=== PATIENT | female | born 1980 | race Caucasian/White ===

== ENCOUNTER 2016-05-18 09:17 | Emergency (ER) | payer OTHER ==
[~2016-05-18] VITALS: Ht 160 cm; Wt 67.9 kg
[~2016-05-18 09:17] MED LIST: ALBUAER19 INH; BUPR-79 PO; FAMO20TA11 PO; PRENTAB26 PO
[2016-05-18 09:22] VITALS: TEMP 37.3; Ht 160 cm; Wt 67.9 kg
--- NOTE | 2016-05-18 09:55 | EMERGENCY ROOM VISIT NOTE ---
History Report prepared by Bry: Adan Zavala Under the Supervision of: Dr. Deyvi Mason M.D. First contact with patient: 09:33 Chief Complaint: ABDOMINAL PAIN Stated Complaint: DIZZY, ELEVATED HEART RATE Nursing Triage Summary: pt reports "'I have been sick with stomache stuff and taking prilosec and this helped , then last week started with stomache pain and nausea and diarrhea" taking pepcid and this seems to help , has taken nothing today History of Present Illness The patient is a 35 year old female who presents to the Emergency Room with complaints of left upper quadrant abdominal pain starting about 3 days ago. Her abdominal pain initially started a few weeks ago. She had a gallbladder ultrasound at her PCP's office a few weeks ago with negative findings. She was placed on Prilosec with relief. About 3 days ago, she started having abdominal pain again. She stopped taking Prilosec and started taking Pepcid without relief. She also started having nausea, diarrhea and dizziness. The dizziness resolved after a day. Yesterday, she also felt gas in her abdomen but has been unable to pass it. This morning, she started having heart palpitations and intermittent dizziness. She reports some mild tingling. She denies any sudden changes in position. The patient denies numbness, chest pain, shortness of breath, vomiting, constipation, urinary symptoms, or any other complaints. She has been having normal menstrual periods. Source of History: patient Onset: about 3 days ago Position: abdomen (LUQ) Timing: intermittent Modifying Factors (Relieving): other (Prilosec with relief; Pepcid without relief) Associated Symptoms: + diarrhea, + nausea, No SOB, No chest pain, No numbness, No urinary symptoms, No vomiting Review of Systems All systems have been listed, reviewed, and are negative other than those previously mentioned. Please see Additional Medical History Sheet. Past Medical & Surgical Medical Problems: (1) Asthma (2) Bronchitis (3) Vaginal delivery Family History Cancer Social History Smoking Status: Former Smoker Alcohol Use: none Marital Status: Occupation Status: unemployed Current/Historical Medications Scheduled Famotidine (Pepcid), 20 MG PO DAILY Allergies Coded Allergies: Sulfamethoxazole w/Trimethoprim (Unverified Allergy, Unknown, RASH, ) Physical Exam Vital Signs Date Time Temp Pulse Resp B/P Pulse Ox O2 Delivery O2 Flow Rate FiO2 2/13/17 12:06 64 16 100/54 97 Room Air 05/18/16 11:09 97/58 05/18/16 09:22 37.3 93 18 102/74 97 Room Air Physical Exam GENERAL: Patient is anxious and occasionally tearful. SKIN: No erythema, pallor, cyanosis or rash HEENT: Normal head, pupils equal, reactive to light and accommodation. Ears normal. Oral cavity and posterior pharynx appear normal. Neck: Without adenopathy, no neck vein distention. LUNGS: Clear to auscultation. No wheezes, no rales, no rhonchi. HEART: No murmurs. No gallops. No rubs ABDOMEN: Patient has vague left upper quadrant tenderness. No masses, no rebound , no hepatomegaly or splenomegaly. BACK: Nontender, no signs of trauma. EXTREMITIES: No signs of trauma. No pedal or pretibial edema. No calf or thigh tenderness. NEUROLOGIC: Cranial nerves II-XII within normal limits. No gross motor sensory function deficits. PSYCHIATRIC: The patient is awake alert but anxious and tearful. Medical Decision & Procedures Laboratory Results 05/18/16 10:00 Red Blood Count 4.53, Mean Corpuscular Volume 89.0, Mean Corpuscular Hemoglobin 31.8, Mean Corpuscular Hemoglobin Concent 35.7, Mean Platelet Volume 10.7, Neutrophils (%) (Auto) 74.2, Lymphocytes (%) (Auto) 18.6, Monocytes (%) (Auto) 6.5, Eosinophils (%) (Auto) 0.3, Basophils (%) (Auto) 0.2, Neutrophils # (Auto) 6.65, Lymphocytes # (Auto) 1.67, Monocytes # (Auto) 0.58, Eosinophils # (Auto) 0.03, Basophils # (Auto) 0.02 05/18/16 10:00 Test 05/18/16 09:50 05/18/16 10:00 Urine Color YELLOW Urine Appearance CLEAR (CLEAR) Urine pH 8.0 (4.5-7.5) Urine Specific [place] 1.005 (1.000-1.030) Urine Protein NEG (NEG) Urine Glucose (UA) NEG (NEG) Urine Ketones NEG (NEG) Urine Occult Blood NEG (NEG) Urine Nitrite NEG (NEG) Urine Bilirubin NEG (NEG) Urine Urobilinogen NEG (NEG) Urine Leukocyte Esterase NEG (NEG) Urine Test NEG (NEG) White Blood Count 8.97 K/uL (4.8-10.8) Red Blood Count 4.53 M/uL (4.2-5.4) Hemoglobin 14.4 g/dL (12.0-16.0) Hematocrit 40.3 % (37-47) Mean Corpuscular Volume 89.0 fL (80-100) Mean Corpuscular Hemoglobin 31.8 pg (25-34) Mean Corpuscular Hemoglobin Concent 35.7 g/dl (32-36) Platelet Count 217 K/uL (130-400) Mean Platelet Volume 10.7 fL (7.4-10.4) Neutrophils (%) (Auto) 74.2 % Lymphocytes (%) (Auto) 18.6 % Monocytes (%) (Auto) 6.5 % Eosinophils (%) (Auto) 0.3 % Basophils (%) (Auto) 0.2 % Neutrophils # (Auto) 6.65 K/uL (1.4-6.5) Lymphocytes # (Auto) 1.67 K/uL (1.2-3.4) Monocytes # (Auto) 0.58 K/uL (0.11-0.59) Eosinophils # (Auto) 0.03 K/uL (0-0.5) Basophils # (Auto) 0.02 K/uL (0-0.2) RDW Standard Deviation 41.7 fL (36.4-46.3) RDW Coefficient of Variation 12.9 % (11.5-14.5) Immature Granulocyte % (Auto) 0.2 % Immature Granulocyte # (Auto) 0.02 K/uL (0.00-0.02) Anion Gap 10.0 mmol/L (3-11) Est Creatinine Clear Calc Drug Dose 77.3 ml/min Estimated GFR () 91.6 Estimated GFR (Non- 79.1 BUN/Creatinine Ratio 8.7 (10-20) Calcium Level 9.5 mg/dl (8.5-10.1) Total Bilirubin 0.3 mg/dl (0.2-1) Aspartate Amino Transf (AST/SGOT) 14 U/L (15-37) Alanine Aminotransferase (ALT/SGPT) 15 U/L (12-78) Alkaline Phosphatase 62 U/L (45-117) Total Protein 7.4 gm/dl (6.4-8.2) Albumin 4.1 gm/dl (3.4-5.0) Globulin 3.3 gm/dl (2.5-4.0) Albumin/Globulin Ratio 1.2 (0.9-2) Lipase 147 U/L (73-393) Laboratory results as stated above per my review. ED Course 0933: Past medical records reviewed. The patient was evaluated in room B08. A complete history and physical examination was performed. 1148: Upon reevaluation, the patient is tearful but otherwise appeared to have improvement of her symptoms. I discussed today's findings with her. She verbalized agreement of the treatment plan. She was discharged home. Medical Decision Differential diagnosis includes but is not limited to hypertensive, anxiety, gastroenteritis, pancreatitis, IBS. 35-year-old female with abdominal pain and anxiety. Patient is tearful. Multiple labs and urinalysis were obtained. Please see above. The patient has no evidence of a can acute bacterial infection. I believe she may have a viral infection with significant overlaying anxiety. I've reassured the patient and encouraged her to continue taking Pepcid and drinking extra fluids. The patient is to follow-up with her family physician in 2 weeks if symptoms have not completely resolved. Impression Primary Impression: Anxiety Additional Impression: Viral infection Scribe Attestation The scribe's documentation has been prepared under my direction and personally reviewed by me in its entirety. I confirm that the note above accurately reflects all work, treatment, procedures, and medical decision making performed by me. Departure Information Dispostion Home / Self-Care Referrals Nalini Talley M.D. (PCP) Forms Call Back Authorization, HOME CARE DOCUMENTATION FORM, IMPORTANT VISIT INFORMATION Patient Instructions My [facility] [place] [employer] Additional Instructions Drug extra fluids. Continue taking Pepcid along with any other prescribed medications. Follow-up with your family physician in 2 weeks if symptoms have not completely resolved. Problem Qualifiers
[2016-05-18 10:18] LABS: BASO % 0.2 %; BASO ABS # 0.02 K/uL (0-0.2); COMPLETE YES; EOS % 0.3 %; HEMATOCRIT 40.3 % (37-47); IG% 0.2 %; LYMPH % 18.6 %; LYMPH ABS # 1.67 K/uL (1.2-3.4); MEAN CORPUSCULAR HEMOGLOBIN 31.8 pg (25-34); MEAN CORPUSCULAR HGB CONC 35.7 g/dl (32-36); MEAN PLATELET VOLUME 10.7 fL (7.4-10.4); MONO % 6.5 %; NEUT % 74.2 %; PLATELET COUNT 217 K/uL (130-400); RED BLOOD COUNT 4.53 M/uL (4.2-5.4); WHITE BLOOD COUNT 8.97 K/uL (4.8-10.8)
[2016-05-18 10:44] LABS: BUN/CREATININE RATIO 8.7 (10-20); CALCIUM 9.5 mg/dl (8.5-10.1); CREATININE 0.93 mg/dl (0.60-1.20); POTASSIUM 3.5 mmol/L (3.5-5.1)
[2016-05-18 10:46] LABS: ALB/GLOB RATIO 1.2 (0.9-2)
[2016-05-18 11:21] LABS: URINE APPEARANCE CLEAR (CLEAR); URINE BILIRUBIN NEG (NEG); URINE COLOR YELLOW; URINE NITRITE NEG (NEG); URINE SPECIFIC GRAVITY 1.005 (1.000-1.030); UROBILINOGEN NEG (NEG); ZZUR CULT IF INDIC CLEAN CATCH NO
[2016-05-18 11:25] LABS: MANUAL MICROSCOPIC REQUIRED? NO; REVIEW REQ? NO
[2016-05-18 12:06] VITALS: BP 100/54; PULSE 64; O2SAT 97
== END 2016-05-18 12:09 | disposition home or self-care (01) ==
LOC: C.EDB 09:18
DX: F41.9 Anxiety disorder, unspecified (principal); B34.9 Viral infection, unspecified; J45.909 Unspecified asthma, uncomplicated; Z87.891 Personal history of nicotine dependence; Z79.899 Other long term (current) drug therapy; Z88.2 Allergy status to sulfonamides

== ENCOUNTER 2016-05-27 08:52 | Emergency (ER) | payer OTHER ==
[~2016-05-27] VITALS: Ht 160 cm; Wt 66.4 kg
[~2016-05-27 08:52] MED LIST changes: -ALBUAER19 INH; -BUPR-79 PO; -PRENTAB26 PO
[2016-05-27 08:54] VITALS: TEMP 37.1; Ht 160 cm; Wt 66.4 kg
[2016-05-27] MEDS ORDERED: NYSS/ PO (09:11)
[2016-05-27] MEDS ORDERED: LORAZEPAM 2 MG/ML 1 ML VIAL IV STA (09:23)
[2016-05-27] MEDS ORDERED: SODIUM CHLORIDE 0.9% 500ML 500 ML IV STA (09:23)
[2016-05-27] MEDS ORDERED: GI COCKTAIL PO STA (09:23)
[2016-05-27] MEDS ORDERED: FAMOTIDINE 20 MG TAB PO ONE (09:30)
[2016-05-27] MEDS ORDERED: SUCRALFATE 1 GM TAB PO ONE (09:30)
--- NOTE | 2016-05-27 09:42 | EMERGENCY ROOM VISIT NOTE ---
History Report prepared by Bry: Eduardo Rutledge Under the Supervision of: Dr. Mannie Nuñez M.D. First contact with patient: 09:05 Chief Complaint: ANXIETY Stated Complaint: SOB, TINGLING IN RT SHOULDER, CHILLS/NO FEVER History of Present Illness The patient is a 35 year old female who presents to the Emergency Room with complaints of recurrent anxiety for the past several weeks. The patient has been experiencing episodes of tachycardia, tingling in her right shoulder, and chest heaviness. The patient's anxiety started when she experienced back-to- back sinus infection followed by gastritis. She was started on Prilosec for ongoing abdominal pain and nausea by Dr. Marcelo. The patient did have some relief of the abdominal issues on Prilosec but notes that she started to experience the tachycardic episodes. She stopped taking Prilosec until she saw Dr. Paige 7 days ago. She started taking Prilosec again as well as BuSpar for anxiety and Nystat for thrush. The patient started to experience her anxiety symptoms again after continuing Prilosec. The patient once again discontinued Prilosec as well as BuSpar a few days ago. The patient has an endoscopy scheduled for six days from now. She has five children at home and is not having any problems at home. She denies suicidal or homicidal ideations. The patient denies personal or family history of heart disease. She is not diabetic. She is an occasional smoker. Source of History: patient Onset: several weeks Position: other (psyche) Quality: other (anxiety) Timing: other (recurrent) Modifying Factors (Worsening): other (Prilosec) Associated Symptoms: + numbness Note: Positive for tachycardia. Review of Systems See HPI for pertinent positives & negatives. A total of 10 systems reviewed and were otherwise negative. Past Medical & Surgical Medical Problems: (1) Asthma (2) Bronchitis (3) Vaginal delivery Family History Cancer Social History Smoking Status: Former Smoker Alcohol Use: none Marital Status: Occupation Status: unemployed Current/Historical Medications Scheduled Nystatin (Nystatin Suspension), 5 ML PO 5XD Scheduled PRN Lorazepam (Ativan), 1 MG PO Q6H PRN for Anxiety/Agitation Allergies Coded Allergies: Sulfamethoxazole w/Trimethoprim (Unverified Allergy, Unknown, RASH, ) Physical Exam Vital Signs Date Time Temp Pulse Resp B/P Pulse Ox O2 Delivery O2 Flow Rate FiO2 05/27/16 11:10 63 16 97/60 100 Room Air 05/27/16 10:31 65 18 102/61 99 Room Air 05/27/16 08:54 37.1 92 18 99/65 97 Room Air Physical Exam GENERAL: Patient is a healthy-appearing well-nourished. Crying on exam. HEAD: Normocephalic atraumatic EYES: Ocular movements intact pupils equal and react to light OROPHARYNX mucous membranes are moist no exudates present no erythema or edema present NECK: Supple no nuchal rigidity CHEST: Good equal expansion LUNGS: Clear and equal to auscultation CARDIAC: Normal S1 and S2 ABDOMEN: Soft nontender no guarding BACK: No CVA tenderness EXTREMITIES: No pain upon palpation normal muscle strength in all groups no clubbing cyanosis or edema NEURO: Patient is following commands is answering questions appropriately. Alert and oriented x3 Cranial Nerves 2-12 grossly intact PSYCH: Crying on exam. Denies suicidal or homicidal ideations. Medical Decision & Procedures ER Provider Diagnostic Interpretation: X-ray results as stated below per interpretation by me and the radiologist: CHEST ONE VIEW PORTABLE CLINICAL HISTORY: Atypical chest pain and shortness of breath COMPARISON STUDY: No previous studies for comparison. FINDINGS: The cardiac and mediastinal contours are normal. There is no evidence of focal pulmonary consolidation. There is no evidence of failure. No pleural effusions are visualized.[ IMPRESSION: No active disease in the chest. Electronically signed by: Javier Segundo M.D. 05/27/2016 9:55 AM Dictated Date/Time: 05/27/2016 9:55 AM Laboratory Results 05/27/16 09:44 Red Blood Count 4.55, Mean Corpuscular Volume 90.1, Mean Corpuscular Hemoglobin 32.1, Mean Corpuscular Hemoglobin Concent 35.6, Mean Platelet Volume 11.2, Neutrophils (%) (Auto) 66.4, Lymphocytes (%) (Auto) 25.7, Monocytes (%) (Auto) 7.2, Eosinophils (%) (Auto) 0.5, Basophils (%) (Auto) 0.1, Neutrophils # (Auto) 4.95, Lymphocytes # (Auto) 1.92, Monocytes # (Auto) 0.54, Eosinophils # (Auto) 0.04, Basophils # (Auto) 0.01 05/27/16 09:44 Test 05/27/16 09:44 White Blood Count 7.47 K/uL (4.8-10.8) Red Blood Count 4.55 M/uL (4.2-5.4) Hemoglobin 14.6 g/dL (12.0-16.0) Hematocrit 41.0 % (37-47) Mean Corpuscular Volume 90.1 fL (80-100) Mean Corpuscular Hemoglobin 32.1 pg (25-34) Mean Corpuscular Hemoglobin Concent 35.6 g/dl (32-36) Platelet Count 206 K/uL (130-400) Mean Platelet Volume 11.2 fL (7.4-10.4) Neutrophils (%) (Auto) 66.4 % Lymphocytes (%) (Auto) 25.7 % Monocytes (%) (Auto) 7.2 % Eosinophils (%) (Auto) 0.5 % Basophils (%) (Auto) 0.1 % Neutrophils # (Auto) 4.95 K/uL (1.4-6.5) Lymphocytes # (Auto) 1.92 K/uL (1.2-3.4) Monocytes # (Auto) 0.54 K/uL (0.11-0.59) Eosinophils # (Auto) 0.04 K/uL (0-0.5) Basophils # (Auto) 0.01 K/uL (0-0.2) RDW Standard Deviation 42.7 fL (36.4-46.3) RDW Coefficient of Variation 13.0 % (11.5-14.5) Immature Granulocyte % (Auto) 0.1 % Immature Granulocyte # (Auto) 0.01 K/uL (0.00-0.02) Anion Gap 10.0 mmol/L (3-11) Est Creatinine Clear Calc Drug Dose 80.0 ml/min Estimated GFR () 96.6 Estimated GFR (Non- 83.4 BUN/Creatinine Ratio 6.1 (10-20) Calcium Level 9.4 mg/dl (8.5-10.1) Total Bilirubin 0.6 mg/dl (0.2-1) Direct Bilirubin 0.1 mg/dl (0-0.2) Aspartate Amino Transf (AST/SGOT) 25 U/L (15-37) Alanine Aminotransferase (ALT/SGPT) 58 U/L (12-78) Alkaline Phosphatase 61 U/L (45-117) Total Creatine Kinase 113 U/L (26-192) Creatine Kinase MB 0.7 ng/ml (0.5-3.6) Creatine Kinase MB Ratio 0.6 (0-3.0) Troponin I < 0.015 ng/ml (0-0.045) Total Protein 7.4 gm/dl (6.4-8.2) Albumin 4.1 gm/dl (3.4-5.0) Lipase 130 U/L (73-393) Labs reviewed by ED physician. Medications Administered Medications (Trade) Dose Ordered Sig/Chiquis Route Start Time Stop Time Status Last Admin Dose Admin Lorazepam 1 mg 1 mg NOW STAT IV 05/27/16 09:23 05/27/16 09:24 DC 05/27/16 10:27 1 MG Sodium Chloride (Nss 500ml) 500 ml @ 999 mls/hr Q31M STAT IV 05/27/16 09:23 05/27/16 09:53 DC 05/27/16 09:23 999 MLS/HR Al Hydroxide/Mg Hydroxide (Maalox Susp) 30 ml STK-MED ONCE .ROUTE 05/27/16 10:18 05/27/16 10:20 DC 05/27/16 10:26 30 ML Lidocaine HCl (Viscous Lidocaine 2% Soln) 20 ml STK-MED ONCE .ROUTE 05/27/16 10:19 05/27/16 10:21 DC 05/27/16 10:26 20 ML ECG Indication: chest pain Rate (beats per minute): 75 Rhythm: normal sinus Findings: no acute ischemic change, no ectopy, other (normal EKG) ED Course 14: Past medical records reviewed. The patient was evaluated in room A4b. A complete history and physical examination was performed. 0923: GI Cocktail 24 ml PO, NSS 500 ml @ 999 mls/hr, Ativan 1 mg IV. 0930: Carafate 1 gm PO, Pepcid 20 mg PO. 1105: Reassessed the patient. Discussed the treatment plan. She verbalized understanding and agreement. The patient is ready for discharge. Medical Decision Differential diagnosis: Etiologies such as mood disorder, infection, hypoglycemia, electrolyte abnormalities, cardiac sources, intracerebral event, toxicologic, neurologic, as well as others were entertained. This is a 35-year-old female who presents emergency department acutely anxious. The patient is hyperventilating and crying on examination. The patient believes she is having a reaction to her Prilosec which she had recently been started on by her primary care physician. In addition the patient also felt she was having reactions to her BuSpar. She stopped taking this 2 days ago. The patient was given 1 mg of Ativan in the emergency department. Repeat examination revealed much improvement the patient's symptoms. She has normal CK -MB troponin as well as a normal EKG. I believe she as well as to be discharged home for follow-up with her primary care physician. I advised the patient that she would only be given a limited supply of Ativan. Patient was in agreement with the treatment plan. Impression Primary Impression: Acute anxiety Scribe Attestation The scribe's documentation has been prepared under my direction and personally reviewed by me in its entirety. I confirm that the note above accurately reflects all work, treatment, procedures, and medical decision making performed by me. Departure Information Dispostion Home / Self-Care Prescriptions Lorazepam (ATIVAN) 1 Mg Tab 1 MG PO Q6H Y for Anxiety/Agitation, #6 TAB Prov: Mannie Nuñez MD 05/27/16 Referrals Nalini Talley M.D. (PCP) Forms HOME CARE DOCUMENTATION FORM, IMPORTANT VISIT INFORMATION, School Instructions, Work Instructions Patient Instructions Anxiety Body Response, My [facility] Additional Instructions Follow up with DR Talley's office You have been examined and treated today on an emergency basis only. This is not a substitute for, or an effort to provide, complete comprehensive medical care. It is impossible to recognize and treat all injuries or illnesses in a single emergency department visit. It is therefore important that you follow up closely with Dr Talley. Call as soon as possible for an appointment. Thank you for your time and consideration. I look forward to speaking with you again soon. Please don't hesitate to call us if you have any questions.
--- NOTE | 2016-05-27 09:56 | DIAGNOSTIC IMAGING REPORT ---
CHEST ONE VIEW PORTABLE CLINICAL HISTORY: Atypical chest pain and shortness of breath COMPARISON STUDY: No previous studies for comparison. FINDINGS: The cardiac and mediastinal contours are normal. There is no evidence of focal pulmonary consolidation. There is no evidence of failure. No pleural effusions are visualized.[ IMPRESSION: No active disease in the chest. Electronically signed by: Javier Segundo M.D. 05/27/2016 9:55 AM Dictated Date/Time: 05/27/2016 9:55 AM
[2016-05-27] MEDS ORDERED: ALUMINUM/MAGNESIUM SUSP 30 ML UDC ONE (10:18)
[2016-05-27] MEDS ORDERED: LIDOCAINE HCL 2% VISC SOLN 20 ML UDC ONE (10:19)
[2016-05-27 10:25] LABS: BASO % 0.1 %; BASO ABS # 0.01 K/uL (0-0.2); COMPLETE YES; EOS % 0.5 %; IG% 0.1 %; LYMPH % 25.7 %; LYMPH ABS # 1.92 K/uL (1.2-3.4); MEAN CELL VOLUME 90.1 fL (80-100); MEAN CORPUSCULAR HEMOGLOBIN 32.1 pg (25-34); MEAN CORPUSCULAR HGB CONC 35.6 g/dl (32-36); MEAN PLATELET VOLUME 11.2 fL (7.4-10.4); MONO % 7.2 %; NEUT % 66.4 %; PLATELET COUNT 206 K/uL (130-400); RED BLOOD COUNT 4.55 M/uL (4.2-5.4); WHITE BLOOD COUNT 7.47 K/uL (4.8-10.8)
[2016-05-27 10:32] LABS: ALT/SGPT 58 U/L (12-78); BLOOD UREA NITROGEN 5 mg/dl (7-18); BUN/CREATININE RATIO 6.1 (10-20); CALCIUM 9.4 mg/dl (8.5-10.1); CARBON DIOXIDE 23 mmol/L (21-32); CHLORIDE 110 mmol/L (98-107); CREATININE 0.89 mg/dl (0.60-1.20); GLUCOSE 89 mg/dl (70-99); POTASSIUM 3.9 mmol/L (3.5-5.1); SODIUM 143 mmol/L (136-145)
[2016-05-27 10:37] LABS: ALKALINE PHOSPHATASE 61 U/L (45-117); AST/SGOT 25 U/L (15-37); CKMB/CK RATIO 0.6 (0-3.0)
[2016-05-27] MEDS ORDERED: ATV/1 PO (11:02)
[2016-05-27 11:10] VITALS: BP 97/60; PULSE 63; O2SAT 100
== END 2016-05-27 11:36 | disposition home or self-care (01) ==
LOC: C.EDB 08:53 → C.EDA 11:36
DX: F41.9 Anxiety disorder, unspecified (principal); J45.909 Unspecified asthma, uncomplicated; Z87.891 Personal history of nicotine dependence; Z88.2 Allergy status to sulfonamides

== ENCOUNTER 2017-11-25 16:44 | Emergency (ER) | payer OTHER ==
[~2017-11-25] VITALS: Ht 160 cm; Wt 80.3 kg
[~2017-11-25 16:44] MED LIST changes: -FAMO20TA11 PO; +NYSS/ PO
[2017-11-25 16:49] VITALS: Ht 160 cm; Wt 80.3 kg
[2017-11-25 17:28] LABS: BASO % 0.3 %; BASO ABS # 0.02 K/uL (0-0.2); EOS % 2.7 %; HEMOGLOBIN 14.2 g/dL (12.0-16.0); IG# 0.01 K/uL (0.00-0.02); LYMPH % 39.3 %; LYMPH ABS # 2.93 K/uL (1.2-3.4); MEAN CELL VOLUME 90.9 fL (80-100); MEAN CORPUSCULAR HEMOGLOBIN 31.5 pg (25-34); MEAN CORPUSCULAR HGB CONC 34.6 g/dl (32-36); MEAN PLATELET VOLUME 10.7 fL (7.4-10.4); MONO % 7.4 %; MONO ABS # 0.55 K/uL (0.11-0.59); NEUT % 50.2 %; NEUT ABS # 3.75 K/uL (1.4-6.5); PLATELET COUNT 197 K/uL (130-400); RED CELL DISTRIBUTION WIDTH CV 12.7 % (11.5-14.5); RED CELL DISTRIBUTION WIDTH SD 42.2 fL (36.4-46.3); WHITE BLOOD COUNT 7.46 K/uL (4.8-10.8)
--- NOTE | 2017-11-25 17:37 | DIAGNOSTIC IMAGING REPORT ---
CHEST ONE VIEW PORTABLE CLINICAL HISTORY: Atypical chest pain COMPARISON STUDY: May 27, 2016 FINDINGS: The cardiac and mediastinal contours are normal. There is no evidence of focal pulmonary consolidation. There is no evidence of failure. No pleural effusions are visualized.[ IMPRESSION: No active disease in the chest. Electronically signed by: Javier Segundo M.D. 11/25/2017 5:36 PM Dictated Date/Time: 11/25/2017 5:35 PM
[2017-11-25 17:49] LABS: ALBUMIN 3.6 gm/dl (3.4-5.0); ALKALINE PHOSPHATASE 68 U/L (45-117); ALT/SGPT 28 U/L (12-78); AST/SGOT 24 U/L (15-37); BLOOD UREA NITROGEN 9 mg/dl (7-18); CALCIUM 8.4 mg/dl (8.5-10.1); CARBON DIOXIDE 22 mmol/L (21-32); CREATININE 0.99 mg/dl (0.60-1.20); GLUCOSE 99 mg/dl (70-99); POTASSIUM 3.4 mmol/L (3.5-5.1); SODIUM 138 mmol/L (136-145); TOTAL PROTEIN 7.2 gm/dl (6.4-8.2)
--- NOTE | 2017-11-25 18:42 | EMERGENCY ROOM VISIT NOTE ---
History First contact with patient: 16:50 Chief Complaint: SHOULDER PAIN Stated Complaint: SHOULDER PAIN History of Present Illness The patient is a 36 year old female who presents to the Emergency Room with complaints of pain on the inside of her right shoulder blade. The patient states that the pain began around 10 AM this morning. She states that the pain has gradually worsened throughout the day. The pain radiates into her neck and arm. She states that she became anxious about the pain and felt "funny" all over. She is nervous because she had a friend of an [place] at a young age. She states that she was not doing anything when the pain began. The pain is worse with movement and with a very deep breath. She is a smoker. She denies control use, recent travel, leg pain/swelling or history of blood clots. She denies any family history of heart disease at a young age. She rates her discomfort a 6/10 and states it is a sharp pain. Review of Systems A complete 10 point review of systems was reviewed with the patient with pertinent positives and negatives as per history of present illness. All else were negative. Past Medical/Surgical History Medical Problems: (1) Asthma (2) Bronchitis (3) Vaginal delivery Family History Cancer Social History Smoking Status: Current Every Day Smoker Alcohol Use: none Marital Status: Occupation Status: unemployed Current/Historical Medications Scheduled Nystatin (Nystatin Suspension), 5 ML PO 5XD Physical Exam Vital Signs Date Time Temp Pulse Resp B/P (MAP) Pulse Ox O2 Delivery O2 Flow Rate FiO2 11/25/17 19:01 37.2 76 18 106/66 99 11/25/17 18:38 76 18 106/66 99 Room Air 11/25/17 17:18 75 11/25/17 16:49 37.2 89 18 121/81 97 Room Air Physical Exam VITALS: Vitals are noted on the nurse's note and reviewed by myself. Vital signs stable. GENERAL: This is a 36-year-old female, in no acute distress, nondiaphoretic, well-developed well-nourished. SKIN: The skin was without rashes. EARS: External auditory canals clear, tympanic membranes pearly katz without erythema or effusion bilaterally. EYES: Pupils equal round and reactive to light and accommodation. MOUTH: Mucous membranes moist. NECK: Supple without nuchal rigidity. No lymphadenopathy. HEART: Regular rate and rhythm without murmurs gallops or rubs. LUNGS: Clear to auscultation bilaterally without wheezes, rales or rhonchi. MUSCULOSKELETAL: There is tenderness to palpation and a palpable spasm just medial to the right shoulder blade. Full range of motion throughout all extremities. NEURO: Patient was alert and oriented to person place and time. Distal sensation intact. Medical Decision & Procedures ER Provider Diagnostic Interpretation: CHEST ONE VIEW PORTABLE CLINICAL HISTORY: Atypical chest pain COMPARISON STUDY: May 27, 2016 FINDINGS: The cardiac and mediastinal contours are normal. There is no evidence of focal pulmonary consolidation. There is no evidence of failure. No pleural effusions are visualized.[ IMPRESSION: No active disease in the chest. Laboratory Results 11/25/17 16:30 Red Blood Count 4.51, Mean Corpuscular Volume 90.9, Mean Corpuscular Hemoglobin 31.5, Mean Corpuscular Hemoglobin Concent 34.6, Mean Platelet Volume 10.7, Neutrophils (%) (Auto) 50.2, Lymphocytes (%) (Auto) 39.3, Monocytes (%) (Auto) 7.4, Eosinophils (%) (Auto) 2.7, Basophils (%) (Auto) 0.3, Neutrophils # (Auto) 3.75, Lymphocytes # (Auto) 2.93, Monocytes # (Auto) 0.55, Eosinophils # (Auto) 0.20, Basophils # (Auto) 0.02 11/25/17 16:30 Test 11/25/17 16:30 White Blood Count 7.46 K/uL (4.8-10.8) Red Blood Count 4.51 M/uL (4.2-5.4) Hemoglobin 14.2 g/dL (12.0-16.0) Hematocrit 41.0 % (37-47) Mean Corpuscular Volume 90.9 fL (80-100) Mean Corpuscular Hemoglobin 31.5 pg (25-34) Mean Corpuscular Hemoglobin Concent 34.6 g/dl (32-36) Platelet Count 197 K/uL (130-400) Mean Platelet Volume 10.7 fL (7.4-10.4) Neutrophils (%) (Auto) 50.2 % Lymphocytes (%) (Auto) 39.3 % Monocytes (%) (Auto) 7.4 % Eosinophils (%) (Auto) 2.7 % Basophils (%) (Auto) 0.3 % Neutrophils # (Auto) 3.75 K/uL (1.4-6.5) Lymphocytes # (Auto) 2.93 K/uL (1.2-3.4) Monocytes # (Auto) 0.55 K/uL (0.11-0.59) Eosinophils # (Auto) 0.20 K/uL (0-0.5) Basophils # (Auto) 0.02 K/uL (0-0.2) RDW Standard Deviation 42.2 fL (36.4-46.3) RDW Coefficient of Variation 12.7 % (11.5-14.5) Immature Granulocyte % (Auto) 0.1 % Immature Granulocyte # (Auto) 0.01 K/uL (0.00-0.02) Anion Gap 9.0 mmol/L (3-11) Est Creatinine Clear Calc Drug Dose 78.1 ml/min Estimated GFR () 84.4 Estimated GFR (Non- 72.8 BUN/Creatinine Ratio 9.2 (10-20) Calcium Level 8.4 mg/dl (8.5-10.1) Total Bilirubin 0.3 mg/dl (0.2-1) Aspartate Amino Transf (AST/SGOT) 24 U/L (15-37) Alanine Aminotransferase (ALT/SGPT) 28 U/L (12-78) Alkaline Phosphatase 68 U/L (45-117) Troponin I < 0.015 ng/ml (0-0.045) Total Protein 7.2 gm/dl (6.4-8.2) Albumin 3.6 gm/dl (3.4-5.0) Globulin 3.6 gm/dl (2.5-4.0) Albumin/Globulin Ratio 1.0 (0.9-2) ECG Per My Interpretation Indication: chest pain Rate (beats per minute): 70 Rhythm: normal sinus Findings: no acute ischemic change, no ectopy Change: no significant change Medical Decision Differential diagnosis includes acute coronary syndrome, pulmonary embolism, pneumothorax, pericarditis, myocarditis, endocarditis, anxiety, musculoskeletal pain, GERD, costochondritis, pneumonia, among others. The patient is a 36-year-old female who presents today complaining of pain in her right shoulder blade. She is concerned about a possible cardiac source. Labs revealed no leukocytosis, anemia or concerning electrolyte abnormalities. Troponin was not elevated. EKG was interpreted by myself and shows a normal sinus rhythm without ischemia or ectopy. The patient was reassured. I believe the pain is musculoskeletal. Conservative measures were discussed with the patient. Based on the patient's presentation and work up, I feel the patient is stable for outpatient treatment. The patient was educated to return to the emergency department for any worsening of their current condition or new/concerning symptoms. She will follow up with her PCP. Medication Reconcilliation Current Medication List: was personally reviewed by me Blood Pressure Screening Patient's blood pressure: Normal blood pressure Impression Primary Impression: Thoracic back pain Departure Information Dispostion Home / Self-Care Condition GOOD Referrals Nalini Talley M.D. (PCP) Patient Instructions My [facility] Additional Instructions You have been treated in the Emergency Department for Back/shoulder pain. As discussed, your Ativan may help to relax the muscle spasm. Take this as prescribed. For pain control, you can use the following [id number] medicines (if >12 yo): - Regular strength (325mg/tab) Tylenol (acetaminophen) 2 tabs every 4-6 hours as needed. Do not exceed 12 tablets in a 24 hour period. Avoid taking more than 4 grams (4000 mg) of Tylenol per day. This includes any other sources of acetaminophen you may take on a regular basis. You may use a heating pad for relief of your pain. He may also benefit from topical treatments such as icy hot, BenGay or a lidocaine patch. You may try massage therapy. Return to the Emergency Department if your current symptoms worsen despite treatment course outlined above, or if you develop any worsening or new/ concerning symptoms. Problem Qualifiers Primary Impression: Thoracic back pain Chronicity: acute Back pain laterality: right Qualified Codes: M54.6 - Pain in thoracic spine
[2017-11-25 19:01] VITALS: BP 106/66; PULSE 76; TEMP 37.2; O2SAT 99
== END 2017-11-25 19:02 | disposition home or self-care (01) ==
LOC: EDBD 16:44 → C.EDD 16:46
DX: M54.6 Pain in thoracic spine (principal); F17.200 Nicotine dependence, unspecified, uncomplicated; J45.909 Unspecified asthma, uncomplicated; Z79.899 Other long term (current) drug therapy